=== PATIENT | female | born 1960 | race Hispanic/Latino ===

== ENCOUNTER 2022-05-04 13:09 | Emergency (ER) | payer MEDICARE ==
--- NOTE | 2022-05-04 13:34 | Event Note ---
Date: 05/04/22 EMS documentation not available at time of chart dictation Verbal report received from emergency medical services Medical screening examination note: 61-year-old female with known history of liver insufficiency, who lives at home by herself, brought to the hospital by EMS because of mechanical fall 2 days ago, landing on her knees, did not hit her head, with inability to get up. The patient is awake, breathing spontaneously, and moving 4 extremities. Apparently, neighbors, friends and/or employer stopped by for wellness check, and called 911. Obtain appropriate laboratory studies and x-ray, ideally obtain case management and physical therapy evaluation. Placed patient in room, for head to toe physical examination, detailed history and physical to be performed by oncoming provider. At the moment, patient is awake, protecting airway, hemodynamically stable, and in no significant distress
[2022-05-04 14:57] LABS: Basophils % (Auto) 0.6 % (0.0-1.8); Eosinophils % (Auto) 0.8 % (0.0-4.3); Hematocrit 39.1 % (30.3-42.9); Hemoglobin 13.4 gm/dl (10.1-14.3); Lymphocytes # (Auto) 0.3 K/mm3 (1.2-5.4); Lymphocytes % (Auto) 8.3 % (13.4-35.0); Mean Corpuscular HGB Conc 34 % (30-34); Mean Corpuscular Volume 93 fl (79-97); Monocytes # (Auto) 0.3 K/mm3 (0.0-0.8); Monocytes % (Auto) 9.1 % (0.0-7.3); Red Blood Count 4.21 M/mm3 (3.65-5.03); Red Cell Distribution Width 17.6 % (13.2-15.2)
[2022-05-04 14:59] LABS: Alanine Aminotransferase 10 units/L (7-56); Albumin 3.6 g/dL (3.9-5); Blood Urea Nitrogen 14 mg/dL (7-17); Hemolysis Index 13; Platelet Count 76 K/mm3 (140-440)
[2022-05-04 15:00] LABS: BUN/Creatinine Ratio 20
[2022-05-04 15:10] LABS: INR 1.25 (0.87-1.13)
[2022-05-04 15:11] LABS: Partial Thromboplastin Time 29.7 Sec. (24.2-36.6)
--- NOTE | 2022-05-04 17:59 | XRay Report ---
CHEST 1 VIEW 05/04/2022 4:52 PM INDICATION / CLINICAL INFORMATION: Fall. COMPARISON: None. FINDINGS: SUPPORT DEVICES: None. HEART / MEDIASTINUM: Normal. LUNGS / PLEURA: There are low lung volumes with elevation of the right hemidiaphragm. This limits kiko luation of the right lower lobe. Accounting for this, lungs are clear. No pneumothorax. ADDITIONAL FINDINGS: No significant additional findings. IMPRESSION: 1. Low lung volumes with elevation of the right hemidiaphragm. There may be chronic atelectasis of th e right lung base. Signer Name: Casper Oneal MD Signed: 05/04/2022 5:55 PM Workstation Name: [employer]
--- NOTE | 2022-05-04 18:00 | XRay Report ---
Pelvis, single frontal view HISTORY: Fall COMPARISON: None FINDINGS: Significant limited evaluation due to body habitus. 2.1 cm rounded density projects lateral to the le ft iliac bone. This is believed to be artifactual. No acute fracture or dislocation is identified. Signer Name: Gavin Mack MD Signed: 05/04/2022 5:56 PM Workstation Name: [email or web address]
--- NOTE | 2022-05-04 18:00 | XRay Report ---
BILATERAL TIBIA-FIBULA 5 VIEW(S) INDICATION / CLINICAL INFORMATION: Fall with leg pain COMPARISON: None available. FINDINGS: BONES / JOINT(S): No acute fracture or subluxation. SOFT TISSUES: No significant abnormality. ADDITIONAL FINDINGS: None. IMPRESSION: 1. No acute findings. Signer Name: Casper Oneal MD Signed: 05/04/2022 5:56 PM Workstation Name: [email or web address]
--- NOTE | 2022-05-04 18:05 | XRay Report ---
BILATERAL FEMUR 7 VIEW(S) INDICATION / CLINICAL INFORMATION: Fall with lower extremity pain COMPARISON: None available. FINDINGS: BONES / JOINT(S): No acute fracture or subluxation. Mild osteoarthrosis changes are noted at the knee s. SOFT TISSUES: No significant abnormality. ADDITIONAL FINDINGS: None. IMPRESSION: 1. Limited study due to patient body habitus and inability to position. Accounting for this, no acute findings. Signer Name: Casper Oneal MD Signed: 05/04/2022 6:00 PM Workstation Name: [email or web address]
[2022-05-04 18:43] VITALS: BP 111/67
--- NOTE | 2022-05-04 19:07 | Emergency Department Report ---
ED Fall HPI - General Chief Complaint: Fall Stated Complaint: FALL Time Seen by Provider: 05/04/22 15:36 Source: patient, EMS Mode of arrival: Stretcher - History of Present Illness Initial Comments: Patient is 61-year-old female brought in by EMS after having a fall at home. St tameras she was unable to get up for the past 2 days. Was found after neighbors called for a well check. She has history of chronic liver disease and abdominal ascites. She complains of pain in both of her knees and her left hip. - Related Data Allergies Allergy/AdvReac Type Severity Reaction Status Date / Time Penicillins AdvReac Unknown Verified 05/04/22 14:19 ED Review of Systems ROS: Stated complaint: FALL Other details as noted in HPI Constitutional: denies: chills, fever Respiratory: denies: cough, shortness of breath, wheezing Cardiovascular: denies: chest pain, palpitations Gastrointestinal: denies: abdominal pain, nausea, diarrhea Genitourinary: denies: urgency, dysuria, discharge Musculoskeletal: denies: back pain, arthralgia Skin: denies: rash, lesions Neurological: denies: headache, weakness, paresthesias Psychiatric: denies: anxiety, depression ED Past Medical Hx - Past Medical History Previous Medical History?: Yes Hx Liver Disease: Yes (CIRRHOSIS) Hx of Cancer: Yes (breast ca) - Surgical History Past Surgical History?: Yes Additional Surgical History: double mastectomy - Social History Smoking Status: Never Smoker Substance Use Type: Alcohol, Marijuana ED Physical Exam - General Limitations: No Limitations General appearance: alert, in no apparent distress - Head Head exam: Present: atraumatic, normocephalic - Respiratory Respiratory exam: Present: normal lung sounds bilaterally. Absent: respiratory distress - Cardiovascular Cardiovascular Exam: Present: regular rate, normal rhythm, normal heart sounds - GI/Abdominal GI/Abdominal exam: Present: soft, distended (Significant abdominal ascites). Absent: tenderness - Rectal Rectal exam: Present: deferred - Extremities Exam Extremities exam: Present: full ROM. Absent: tenderness, joint swelling - Neurological Exam Neurological exam: Present: alert, oriented X3, CN II-XII intact - Psychiatric Psychiatric exam: Present: normal affect, normal mood - Skin Skin exam: Present: warm, dry, intact, normal color ED Course Vital Signs 05/04/22 05/04/22 14:17 18:38 Temperature 97.7 F 98.1 F Pulse Rate 100 H 85 Respiratory 18 16 Rate Blood Pressure 106/67 111/67 [Left] O2 Sat by Pulse 98 97 Oximetry ED Medical Decision Making - Lab Data Result diagrams: 05/04/22 14:17 05/04/22 14:17 - Medical Decision Making X-ray of chest, pelvis, tib-fib unremarkable. Labs reviewed and are stable. Patient states she is currently unable to move/ambulate. Will obtain social work consult to arrange for discharge. Critical care attestation.: If time is entered above; I have spent that time in minutes in the direct care of this critically ill patient, excluding procedure time. ED Disposition Clinical Impression: Fall at home, Abdominal ascites Disposition: HOME / SELF CARE / HOMELESS Is pt being admited?: No Condition: Stable Instructions: Ascites Referrals: PRIMARY CARE, [Primary Care Provider] - 3-5 Days
--- NOTE | 2022-05-04 19:44 | Consultation ---
History of Present Illness - Reason for Consult Consult date: 05/04/22 Fall Requesting physician: ALVINA CORBIN - History of Present Illness 61 YO Female with Obesity, Cirrhosis complicated by Chronic Ascites presents ED for evaluation. Patient states that she experienced a fall while at home and was unable to lift herself up from the floor. EMS was notified and upon arrival the patient was found down and was subsequently lifted off the floor and transported to [facility] for further care and evaluation of the aforementioned symptoms. The patient was seen and evaluated emergency department. Lab and imaging studies reviewed. Patient medically optimized and is at baseline level of cognition and function. Patient does not meet admission criteria at this time. Patient has chronic large volume ascites without respiratory symptoms and therapeutic paracentesis is not warranted at this time due to lack of respiratory symptoms. Case management consulted for assistance with arrangement of outpatient supplies and equipment. Past History Past Medical History: other (See HPI) Past Surgical History: mastectomy Social history: single. denies: smoking, alcohol abuse, prescription drug abuse Family history: hypertension Medications and Allergies Allergies Allergy/AdvReac Type Severity Reaction Status Date / Time Penicillins AdvReac Unknown Verified 05/04/22 14:19 Review of Systems Constitutional: no weight loss, no weight gain, no fever, no chills Ears, nose, mouth and throat: no ear pain, no ear discharge, no tinnitis, no dec reased hearing, no nose pain, no nasal congestion, no nasal discharge, no sinus pressure Breasts: no change in shape, no swelling, no mass Cardiovascular: no chest pain, no orthopnea, no palpitations, no syncope Respiratory: no cough, no excessive sputum, no hemoptysis, no dyspnea on exertion Gastrointestinal: no abdominal pain, no nausea, no vomiting, no constipation Genitourinary Female: no pelvic pain, no flank pain, no dysuria, no urinary frequency, no urgency Rectal: no pain, no incontinence, no bleeding Musculoskeletal: no neck stiffness, no neck pain, no arm numbness/tingling, no shooting leg pain, no leg numbness/tingling Integumentary: no rash, no pruritis, no redness, no sores, no wounds, no jaundice Neurological: no head injury, no paralysis, no weakness, no parathesias, no numbness, no tingling, no seizures Psychiatric: no anxiety, no memory loss, no sleep disturbances, no hypersomnia, no change in appetite, no suicidal ideation Endocrine: no cold intolerance, no heat intolerance, no excessive thirst, no polydipsia, no polyuria Hematologic/Lymphatic: no easy bruising Allergic/Immunologic: no urticaria, no wheezing Exam - Constitutional Vitals: Temp Pulse Resp BP Pulse Ox 98.1 F 85 16 111/67 97 05/04/22 18:38 05/04/22 18:38 05/04/22 18:38 05/04/22 18:38 05/04/22 18:38 General appearance: Present: no acute distress, obese - EENT Eyes: Present: PERRL ENT: hearing intact, clear oral mucosa - Neck Neck: Present: supple, normal ROM - Respiratory Respiratory effort: normal Respiratory: bilateral: CTA - Cardiovascular Heart Sounds: Present: S1 & S2. Absent: rub, click - Extremities Extremities: pulses symmetrical, No edema Peripheral Pulses: within normal limits - Abdominal General gastrointestinal: Present: soft, non-tender, non-distended, normal bowel sounds, other (Protuberant, positive fluid wave) Female genitourinary: Present: normal - Integumentary Integumentary: Present: clear, warm, dry - Musculoskeletal Musculoskeletal: gait normal, strength equal bilaterally - Psychiatric Psychiatric: appropriate mood/affect, intact judgment & insight - Neurologic Neurologic: CNII-XII intact, moves all extremities Results - Labs CBC & Chem 7: 05/04/22 14:17 05/04/22 14:17 Labs: Abnormal lab results 05/04/22 05/04/22 05/04/22 Range/Units 14:17 14:17 14:17 WBC 3.4 L (4.5-11.0) K/mm3 RDW 17.6 H (13.2-15.2) % Plt Count 76 L (140-440) K/mm3 Lymph % (Auto) 8.3 L (13.4-35.0) % [place] % (Auto) 9.1 H (0.0-7.3) % Lymph # (Auto) 0.3 L (1.2-5.4) K/mm3 Seg Neutrophils % 81.2 H (40.0-70.0) % PT 17.2 H (12.2-14.9) Sec. INR 1.25 H (0.87-1.13) Total Bilirubin 3.40 H (0.1-1.2) mg/dL Total Protein 6.2 L (6.3-8.2) g/dL Albumin 3.6 L (3.9-5) g/dL Assessment and Plan - Patient Problems (1) Debility Current Visit: Yes Status: Acute Plan to address problem: Patient does not meet admission criteria at this time. No soft tissue or bony injury. Patient medically optimized and is at baseline level of both cognition and function. Discharge home with home health, rolling walker, bedside commode, shower chair. Patient may also benefit from the purchase of a motorized scooter for ambulation.
== END 2022-05-04 21:59 | disposition home or self-care (01) ==
LOC: ED 13:09
DX: R18.8 Other ascites (principal); W19.XXXA Unspecified fall, initial encounter; Y93.89 Activity, other specified; Y92.89 Other specified places as the place of occurrence of the external cause; Y99.8 Other external cause status; F12.90 Cannabis use, unspecified, uncomplicated; Z88.0 Allergy status to penicillin
CPT/HCPCS: 36415; 71045; 72170; 80053; 82550; 83735; 85025; 85610; 85730; 99283; 99284

== ENCOUNTER 2022-05-04 22:57 | Inpatient (IN) | payer MEDICARE ==
--- NOTE | 2022-05-04 23:27 | Emergency Department Report ---
HPI - HPI HPI: Room 7 The patient is a 61-year-old female brought back to the ED by EMS secondary to poor home living conditions and patient's inability to walk. The patient was seen here earlier today after previous fall. Patient states 2 days ago she fell and was unable to get up. Patient was found when others called for a well check visit. Patient was evaluated in the ED with x-rays. Hospital medicine was consulted and stated patient did not meet criteria for admission. The patient was discharged home however when EMS arrived to the patient's only saw the patient's poor living conditions and that she was living alone and she was unable to ambulate stated it was an unsafe discharge. Patient was brought back to the ED for further management <NIKIA HARRINGTON - Last Filed: 05/04/22 23:23> - General PUI?: No <BILLY BENITEZ - Last Filed: 05/07/22 19:43> - General Time Seen by Provider: 05/04/22 23:09 ED Past Medical Hx - Past Medical History Hx Liver Disease: Yes (CIRRHOSIS) - Surgical History Additional Surgical History: double mastectomy - Family History Family history: no significant - Social History Smoking Status: Never Smoker Substance Use Type: Alcohol, Marijuana <NIKIA HARRINGTON - Last Filed: 05/04/22 23:23> <BILLY BENITEZ - Last Filed: 05/07/22 19:43> - Medications Home Medications: Home Medications Medication Instructions Recorded Confirmed Last Taken Type Furosemide [Lasix TAB] 40 mg PO QDAY 30 Days #30 tablet 05/07/22 Unknown Rx Spironolactone [Aldactone] 100 mg PO QDAY 30 Days #60 tablet 05/07/22 Unknown Rx ED Review of Systems ROS: Stated complaint: LIVING IN UNSAFE CONDITION Other details as noted in HPI Constitutional: malaise (Unable to walk) Eyes: denies: eye pain Respiratory: no symptoms reported Cardiovascular: denies: chest pain Endocrine: no symptoms reported Gastrointestinal: denies: abdominal pain Musculoskeletal: as per HPI Neurological: denies: headache <NIKIA HARRINGTON - Last Filed: 05/04/22 23:23> ROS: Stated complaint: LIVING IN UNSAFE CONDITION Other details as noted in HPI <BILLY BENITEZ - Last Filed: 05/07/22 19:43> Physical Exam - Physical Exam Physical Exam: GENERAL: The patient is well-developed well-nourished female lying on stretcher not appearing to be in acute distress talking on mobile phone. [] HEENT: Normocephalic. Atraumatic. Extraocular motions are intact. Patient has moist mucous membranes. NECK: Supple. Trachea midline CHEST/LUNGS: Clear to auscultation. There is no respiratory distress noted. HEART/CARDIOVASCULAR: Regular. There is no tachycardia. There is no gallop rub or murmur. ABDOMEN: Abdomen is soft, nontender. Patient has normal bowel sounds. Obese. There is no tense ascites present SKIN: There is no rash. There is no edema. There is no diaphoresis. NEURO: The patient is awake, alert, and oriented. The patient is cooperative. The patient has no focal neurologic deficits. The patient has normal speech. GCS 15 MUSCULOSKELETAL: There is no evidence of acute injury. <NIKIA HARRINGTON - Last Filed: 05/04/22 23:23> - Physical Exam Vital Signs: Vital Signs 05/05/22 05/05/22 00:22 06:34 Temperature 98.0 F 98.3 F Pulse Rate 79 79 Respiratory 20 19 Rate Blood Pressure 139/71 133/77 [Left] O2 Sat by Pulse 100 99 Oximetry <BILLY BENITEZ - Last Filed: 05/07/22 19:43> ED Course Vital Signs 05/05/22 05/05/22 00:22 06:34 Temperature 98.0 F 98.3 F Pulse Rate 79 79 Respiratory 20 19 Rate Blood Pressure 139/71 133/77 [Left] O2 Sat by Pulse 100 99 Oximetry <BILLY BENITEZ - Last Filed: 05/07/22 19:43> ED Medical Decision Making - Differential Diagnosis Needs home health <NIKIA HARRINGTON - Last Filed: 05/04/22 23:23> - Lab Data Result diagrams: 05/06/22 03:51 05/06/22 03:51 <BILLY BENITEZ - Last Filed: 05/07/22 19:43> Critical care attestation.: If time is entered above; I have spent that time in minutes in the direct care of this critically ill patient, excluding procedure time. <NIKIA HARRINGTON - Last Filed: 05/04/22 23:23> Critical care attestation.: If time is entered above; I have spent that time in minutes in the direct care of this critically ill patient, excluding procedure time. <BILLY BENITEZ - Last Filed: 05/07/22 19:43> ED Disposition Time of Disposition: 23:27 (Awaiting case management) <NIKIA HARRINGTON - Last Filed: 05/04/22 23:23> Is pt being admited?: Yes Does the pt Need Aspirin: No <BILLY BENITEZ - Last Filed: 05/07/22 19:43> Clinical Impression: Debility Disposition: ADMITTED INPATIENT Condition: Stable
[2022-05-05] MEDS ORDERED: ONDANSETRON 4 MG/2 ML INJ IV PRN ×2 (09:58→11:00)
[2022-05-05] MEDS ORDERED: ACETAMINOPHEN 325 MG TAB PO PRN ×2 (09:58→11:00)
[2022-05-05] MEDS ORDERED: MORPHINE 2 MG/1 ML INJ IV PRN (09:58)
--- NOTE | 2022-05-05 09:58 | Event Note ---
Date: 05/05/22 This patient signed out to me as a case management patient as she was not safe to be discharged home. Pt was brought back by the EMS yesterday after she was discharged home. I was asked to reassess this patient with sob and needing 6 L O2 supplement with abdominal distension. Pt has history of chronic ascites with cirrhosis and have had large paracentesis in the past. With this patient been hypoxic at this time will consider admission. Dr Guillermo consulted who accept patient for further evaluation and treatment.
[2022-05-05] MEDS ORDERED: MORPHINE 4 MG/1 ML INJ IV PRN (11:00)
[2022-05-05 11:09] LABS: Hemoglobin 12.9 gm/dl (10.1-14.3); Mean Corpuscular HGB Conc 33 % (30-34); Mean Corpuscular Volume 94 fl (79-97); Red Blood Count 4.13 M/mm3 (3.65-5.03); Red Cell Distribution Width 17.9 % (13.2-15.2)
[2022-05-05 11:11] LABS: Platelet Count 79 K/mm3 (140-440)
[2022-05-05 11:18] LABS: Alanine Aminotransferase 10 units/L (7-56); Albumin 3.4 g/dL (3.9-5); BUN/Creatinine Ratio 18; Blood Urea Nitrogen 14 mg/dL (7-17); Calcium 9.2 mg/dL (8.4-10.2); Hemolysis Index 20
[2022-05-05 11:35] LABS: INR 1.36 (0.87-1.13)
[2022-05-05] MEDS ORDERED: ALBUMIN HUMAN 25% (25 GM/100 ML) INJ IV PRN (11:40)
--- NOTE | 2022-05-05 11:58 | History and Physical Report ---
History of Present Illness Date of examination: 05/05/22 Date of admission: 05/05/22 09:58 History of present illness: Patient is a 61-year-old female with past medical history significant for cirrhosis who presented to the emergency department after a same level fall. The patient felt Monday night and was unable to get up. She was found around monday after a welfare check. She denies lightheadedness, dizziness, syncope or loss of consciousness. Patient was initially seen in the ED and discharged home but was brought back by EMS due to inability to walk back into her home. She was found to be hypoxic and placed on supplemental oxygen. She reports following with Dr. Jasiel Sinha with [facility] for cirrhosis. She had 20 L of fluid removed last month and takes Lasix and spironolactone. She is admitted for management of acute hypoxic respiratory failure and therapeutic paracentesis. PT was consulted to assess her ability to ambulate. Past History Past Medical History: cancer, liver disease Social history: Lives alone. denies: smoking, alcohol abuse, IV drug use Family history: no significant family history Medications and Allergies Allergies Allergy/AdvReac Type Severity Reaction Status Date / Time Penicillins Allergy Severe Unknown Verified 05/05/22 10:06 Active Meds: Active Medications Acetaminophen (Acetaminophen 325 Mg Tab) 650 mg PO Q4H PRN PRN Reason: Pain MILD(1-3)/Fever >100.5/[place] Albumin Human (Albumin Human 25% (25 Gm/100 Ml) Inj) 25 gm IV Q8HR PRN PRN Reason: Hypotension Furosemide (Furosemide 40 Mg Tab) 40 mg PO QDAY LALO Morphine Sulfate (Morphine 2 Mg/1 Ml Inj) 2 mg IV Q4H PRN PRN Reason: Pain, Moderate (4-6) Morphine Sulfate (Morphine 4 Mg/1 Ml Inj) 4 mg IV Q4H PRN PRN Reason: Pain , Severe (7-10) Ondansetron HCl (Ondansetron 4 Mg/2 Ml Inj) 4 mg IV Q8H PRN PRN Reason: Nausea And Vomiting Oxycodone/Acetaminophen (Oxycodone /Acetaminophen 5-325mg Tab) 1 tab PO Q6H PRN PRN Reason: Pain, Moderate (4-6) Sodium Chloride (Sodium Chloride 0.9% 10 Ml Flush Syringe) 10 ml IV BID LALO Sodium Chloride (Sodium Chloride 0.9% 10 Ml Flush Syringe) 10 ml IV PRN NR Stop: 05/10/22 10:59 Spironolactone (Spironolactone 50 Mg Tab) 100 mg PO QDAY [facility] Review of Systems Constitutional: weight gain, no fever, no chills, no sweats, no anorexia, no fatigue, no poor appetite, no chronic pain Ears, nose, mouth and throat: no tinnitis, no dysphagia, no sore throat, no headache, no vertigo Breasts: deferred Cardiovascular: edema, shortness of breath, no chest pain, no palpitations, no rapid/irregular heart beat, no syncope, no lightheadedness, no dyspnea on exertion, no high blood pressure, no leg edema Respiratory: no cough, no hemoptysis, no congestion, no wheezing, no pain on inspiration, no home oxygen Gastrointestinal: early satiety, no abdominal pain, no nausea, no vomiting, no diarrhea, no constipation, no hematemesis, no coffee ground emesis, no heartburn Menstruation: postmenopausal Musculoskeletal: no low back pain, no leg numbness/tingling, no muscle weakness, no gait dysfunction, no frequent falls, no fractures Integumentary: no rash, no sores, no jaundice, no dryness Neurological: no head injury, no weakness, no parathesias, no syncope, no tremors, no lack of coordination, no change in mentation, no confusion, no double vision, no loss of vision Psychiatric: change in sleep habits, no anxiety, no memory loss, no suicidal ideation, no hopelessness Endocrine: no polydipsia, no polyuria, no fatigue Exam - Physical Exam Narrative exam: GENERAL: Well-developed well-nourished. In no acute distress. HEENT: NC in place at 5LPM. No scleral icterus noted. Edentulous. NECK: Supple. CHEST/LUNGS: CTAB on supplemental O2 HEART/CARDIOVASCULAR: RRR. No murmur, rubs or gallops appreciated. ABDOMEN: +BS. Distended due to ascites. NT to palpation. SKIN: No rashes noted. NEURO: No focal motor deficit. Follows all commands. MUSCULOSKELETAL: No joint effusion EXTREMITIES: No cyanosis, clubbing or periperal edema. PSYCH: Cooperative. - Constitutional Vitals: Temp Pulse Resp BP Pulse Ox 98.3 F 107 H 12 116/68 99 05/05/22 06:34 05/05/22 07:49 05/05/22 09:00 05/05/22 09:46 05/05/22 09:46 Results - Labs CBC & Chem 7: 05/05/22 10:23 05/05/22 10:23 Labs: Laboratory Last Values WBC 4.0 K/mm3 (4.5-11.0) L 05/05/22 10:23 RBC 4.13 M/mm3 (3.65-5.03) 05/05/22 10:23 Hgb 12.9 gm/dl (10.1-14.3) 05/05/22 10:23 Hct 39.0 % (30.3-42.9) 05/05/22 10:23 MCV 94 fl (79-97) 05/05/22 10:23 MCH 31 pg (28-32) 05/05/22 10:23 MCHC 33 % (30-34) 05/05/22 10:23 RDW 17.9 % (13.2-15.2) H 05/05/22 10:23 Plt Count 79 K/mm3 (140-440) L 05/05/22 10:23 PT 18.4 Sec. (12.2-14.9) H 05/05/22 10:23 INR 1.36 (0.87-1.13) H 05/05/22 10:23 Sodium 141 mmol/L (137-145) 05/05/22 10:23 Potassium 4.1 mmol/L (3.6-5.0) 05/05/22 10:23 Chloride 102.6 mmol/L (98-107) 05/05/22 10:23 Carbon Dioxide 25 mmol/L (22-30) 05/05/22 10:23 Anion Gap 18 mmol/L 05/05/22 10:23 BUN 14 mg/dL (7-17) 05/05/22 10:23 Creatinine 0.8 mg/dL (0.6-1.2) 05/05/22 10:23 Estimated GFR > 60 ml/min 05/05/22 10:23 BUN/Creatinine Ratio 18 % 05/05/22 10:23 Glucose 95 mg/dL (65-100) 05/05/22 10:23 Calcium 9.2 mg/dL (8.4-10.2) 05/05/22 10:23 Total Bilirubin 3.20 mg/dL (0.1-1.2) H 05/05/22 10:23 AST 23 units/L (5-40) 05/05/22 10:23 ALT 10 units/L (7-56) 05/05/22 10:23 Alkaline Phosphatase 62 units/L (35-129) 05/05/22 10:23 Total Protein 5.7 g/dL (6.3-8.2) L 05/05/22 10:23 Albumin 3.4 g/dL (3.9-5) L 05/05/22 10:23 Albumin/Globulin Ratio 1.5 % 05/05/22 10:23 - Imaging and Cardiology Chest x-ray: report reviewed, image reviewed Assessment and Plan Assessment and plan: #Acute hypoxic respiratory failure -Baseline oxygen requirement: None -Oxygen requirement: Currently on 5 L nasal cannula, will wean as tolerated -Likely secondary to ascites -Continuous pulse ox -Chest x-ray shows low lung volumes with elevated right hemidiaphragm #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 #Ascites -theraputic paracentesis ordered -continue lasix and furosemide #Same level fall -Skeletal survey was negative for acute fractures/dislocations -PT consultation ordered to evaluate gait #History of breast cancer -Status postchemotherapy #Morbid obesity #Weight loss counseling #Exercise counseling - Counseled patient on the importance of weight loss, incorporating exercise, and dietary changes (lean meats, fresh fruits and vegetables, and water intake). Patient expresses understanding. - Time: +15 min #Advanced care planning -Disease education conducted, care plan discussed, diagnoses discussed, prognosis discussed, and patient acknowledges understanding with care plan -Time: +30 min #Debility -PT evaluation for safe discharge -Patient lives alone Advance Directives: No VTE prophylaxis?: Chemical Plan of care discussed with patient/family: Yes
[2022-05-05] MEDS: FUROSEMIDE 40 MG TAB PO SCH (12:51)
[2022-05-05] MEDS: SPIRONOLACTONE 50 MG TAB PO SCH (12:51)
[2022-05-05] MEDS ORDERED: LIDOCAINE (1%) 10 MG/1 ML VIAL 20 ML MDV ONE (13:55)
--- NOTE | 2022-05-05 14:20 | Procedure Note ---
Date of procedure: 05/05/22 Pre-op diagnosis: ascites Post-op diagnosis: same Procedure: US paracentesis Findings: large ascites Anesthesia: local Surgeon: DELL ALMAZAN Estimated blood loss: none Pathology: none Specimen disposition: discarded Condition: stable Disposition: other (back to ER)
[2022-05-06] MEDS: HEPARIN 5,000 UNIT/1 ML VIAL SUB-Q SCH ×4 (00:16→21:29)
[2022-05-06 04:43] LABS: Basophils % (Auto) 0.8 % (0.0-1.8); Eosinophils # (Auto) 0.1 K/mm3 (0.0-0.4); Eosinophils % (Auto) 1.9 % (0.0-4.3); Hematocrit 38.1 % (30.3-42.9); Hemoglobin 13.1 gm/dl (10.1-14.3); Lymphocytes # (Auto) 0.4 K/mm3 (1.2-5.4); Mean Corpuscular HGB Conc 34 % (30-34); Mean Corpuscular Volume 92 fl (79-97); Monocytes # (Auto) 0.4 K/mm3 (0.0-0.8); Red Blood Count 4.13 M/mm3 (3.65-5.03); Red Cell Distribution Width 17.2 % (13.2-15.2)
[2022-05-06 04:44] LABS: Platelet Count 70 K/mm3 (140-440)
[2022-05-06 04:50] LABS: INR 1.44 (0.87-1.13)
[2022-05-06 05:03] LABS: Alanine Aminotransferase 8 units/L (7-56); Albumin 2.7 g/dL (3.9-5); BUN/Creatinine Ratio 16; Blood Urea Nitrogen 13 mg/dL (7-17); Calcium 8.4 mg/dL (8.4-10.2); Hemolysis Index 9
[2022-05-06] MEDS: oxyCODONE /ACETAMINOPHEN 5-325MG TAB PO PRN ×2 (08:49→14:34)
[2022-05-06] MEDS: FUROSEMIDE 40 MG TAB PO SCH (14:17)
[2022-05-06] MEDS: SPIRONOLACTONE 50 MG TAB PO SCH (14:17)
[2022-05-06] MEDS ORDERED: POTASSIUM CHLORIDE ER 20 MEQ TAB PO SCH (14:30)
--- NOTE | 2022-05-06 15:05 | Progress Note ---
Assessment and Plan Assessment and plan: #Acute hypoxic respiratory failure-resolved -Baseline oxygen requirement: None -Oxygen requirement: None -Likely secondary to ascites causing low lung volumes -Chest x-ray shows low lung volumes with elevated right hemidiaphragm #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 #Ascites #thrombocytopenia -theraputic paracentesis completed yesterday -continue lasix and furosemide -thrombocytopenia due to liver disease, will continue to monitor #Same level fall -Skeletal survey was negative for acute fractures/dislocations -PT consultation ordered to evaluate gait #History of breast cancer -Status postchemotherapy #Morbid obesity #Weight loss counseling #Exercise counseling - Counseled patient on the importance of weight loss, incorporating exercise, and dietary changes (lean meats, fresh fruits and vegetables, and water intake). Patient expresses understanding. - Time: +15 min #moderate protein calorie malnutrition -albumin 2.9 -secondary to cirrhosis #Advanced care planning -Disease education conducted, care plan discussed, diagnoses discussed, prognosis discussed, and patient acknowledges understanding with care plan -Time: +30 min #Debility -PT evaluation for safe discharge -Patient lives alone History Interval history: No acute events overnight. Patient has no complaints at this time. She is currently waiting for PT evaluation to determine dispo. Hospitalist Physical - Physical exam Narrative exam: GENERAL: Well-developed well-nourished. In no acute distress. HEENT: Normocephalic, atraumatic. No scleral icterus noted. Edentulous. NECK: Supple. CHEST/LUNGS: CTAB on RA. HEART/CARDIOVASCULAR: RRR. No murmur, rubs or gallops appreciated. ABDOMEN: +BS. Distended. NT to palpation. SKIN: BUE ecchymoses NEURO: No focal motor deficit. Follows all commands. MUSCULOSKELETAL: No joint effusion EXTREMITIES: No cyanosis, clubbing or peripheral edema. PSYCH: Cooperative. - Constitutional Vitals: Temp Pulse Resp BP Pulse Ox 97.9 F 84 18 86/49 98 05/06/22 11:38 05/06/22 11:38 05/06/22 11:38 05/06/22 11:38 05/06/22 11:38 Results - Labs CBC & Chem 7: 05/06/22 03:51 05/06/22 03:51 Labs: Laboratory Last Values WBC 3.2 K/mm3 (4.5-11.0) L 09/02/22 03:51 RBC 4.13 M/mm3 (3.65-5.03) 05/06/22 03:51 Hgb 13.1 gm/dl (10.1-14.3) 05/06/22 03:51 Hct 38.1 % (30.3-42.9) 05/06/22 03:51 MCV 92 fl (79-97) 05/06/22 03:51 MCH 32 pg (28-32) 05/06/22 03:51 MCHC 34 % (30-34) 05/06/22 03:51 RDW 17.2 % (13.2-15.2) H 05/06/22 03:51 Plt Count 70 K/mm3 (140-440) L 05/06/22 03:51 Lymph % (Auto) 13.0 % (13.4-35.0) L 05/06/22 03:51 [place] % (Auto) 14.0 % (0.0-7.3) H 05/06/22 03:51 Eos % (Auto) 1.9 % (0.0-4.3) 05/06/22 03:51 Baso % (Auto) 0.8 % (0.0-1.8) 05/06/22 03:51 Lymph # (Auto) 0.4 K/mm3 (1.2-5.4) L 05/06/22 03:51 [place] # (Auto) 0.4 K/mm3 (0.0-0.8) 05/06/22 03:51 Eos # (Auto) 0.1 K/mm3 (0.0-0.4) 05/06/22 03:51 Baso # (Auto) 0.0 K/mm3 (0.0-0.1) 05/06/22 03:51 Seg Neutrophils % 70.3 % (40.0-70.0) H 05/06/22 03:51 Seg Neutrophils # 2.2 K/mm3 (1.8-7.7) 05/06/22 03:51 PT 19.3 Sec. (12.2-14.9) H 05/06/22 03:51 INR 1.44 (0.87-1.13) H 05/06/22 03:51 Sodium 144 mmol/L (137-145) 05/06/22 03:51 Potassium 3.4 mmol/L (3.6-5.0) L 05/06/22 03:51 Chloride 104.6 mmol/L (98-107) 05/06/22 03:51 Carbon Dioxide 29 mmol/L (22-30) 05/06/22 03:51 Anion Gap 14 mmol/L 05/06/22 03:51 BUN 13 mg/dL (7-17) 05/06/22 03:51 Creatinine 0.8 mg/dL (0.6-1.2) 05/06/22 03:51 Estimated GFR > 60 ml/min 05/06/22 03:51 BUN/Creatinine Ratio 16 % 05/06/22 03:51 Glucose 91 mg/dL (65-100) 05/06/22 03:51 Calcium 8.4 mg/dL (8.4-10.2) 05/06/22 03:51 Total Bilirubin 1.90 mg/dL (0.1-1.2) H 05/06/22 03:51 AST 18 units/L (5-40) 05/06/22 03:51 ALT 8 units/L (7-56) 05/06/22 03:51 Alkaline Phosphatase 55 units/L (35-129) 05/06/22 03:51 Total Protein 5.0 g/dL (6.3-8.2) L 05/06/22 03:51 Albumin 2.7 g/dL (3.9-5) L 05/06/22 03:51 Albumin/Globulin Ratio 1.2 % 05/06/22 03:51 [place]/IV: Voiding Method Indwelling Catheter Active Medications - Current Medications Current Medications: Generic Name Dose Route Start Last Admin Trade Name Freq PRN Reason Stop Dose Admin Acetaminophen 650 mg 05/05/22 11:00 Acetaminophen 325 Mg Tab PO Q4H PRN Pain MILD(1-3)/Fever >100.5/[place] Albumin Human 25 gm 05/05/22 11:40 05/06/22 14:16 Albumin Human 25% (25 Gm/100 Ml) Inj IV 25 gm Q8HR PRN Administration Hypotension Furosemide 40 mg 05/05/22 12:00 05/06/22 14:17 Furosemide 40 Mg Tab PO Not Given QDAY LALO Heparin Sodium (Porcine) 5,000 unit 05/05/22 22:00 05/06/22 14:33 Heparin 5,000 Unit/1 Ml Vial SUB-Q 5,000 unit Q8HR LALO Administration Morphine Sulfate 2 mg 05/05/22 09:58 Morphine 2 Mg/1 Ml Inj IV Q4H PRN Pain, Moderate (4-6) Morphine Sulfate 4 mg 05/05/22 11:00 Morphine 4 Mg/1 Ml Inj IV Q4H PRN Pain , Severe (7-10) Ondansetron HCl 4 mg 05/05/22 11:00 Ondansetron 4 Mg/2 Ml Inj IV Q8H PRN Nausea And Vomiting Oxycodone/Acetaminophen 1 tab 05/05/22 11:00 05/06/22 14:34 Oxycodone /Acetaminophen 5-325mg Tab PO 1 tab Q6H PRN Administration Pain, Moderate (4-6) Potassium Chloride 40 meq 05/06/22 14:30 05/06/22 14:32 Potassium Chloride Er 20 Meq Tab PO 05/06/22 18:30 40 meq ONCE@1430 LALO Administration Sodium Chloride 10 ml 05/05/22 22:00 05/06/22 09:51 Sodium Chloride 0.9% 10 Ml Flush Syringe IV 10 ml BID LALO Administration Sodium Chloride 10 ml 05/05/22 11:00 Sodium Chloride 0.9% 10 Ml Flush Syringe IV 05/10/22 10:59 PRN NR Spironolactone 100 mg 05/05/22 12:00 05/06/22 14:17 Spironolactone 50 Mg Tab PO Not Given QDAY LALO
[2022-05-07] MEDS: HEPARIN 5,000 UNIT/1 ML VIAL SUB-Q SCH ×3 (05:41→21:06)
--- NOTE | 2022-05-07 07:28 | Discharge Summary ---
Providers - Providers Date of Admission: 05/05/22 09:58 Attending physician: AYO MAXWELL MD 05/04/22 23:21 Consult to Case Management [CONS] Urgent Services Needed at Discharge: [facility] Notified:: n Additional Physician Instructions: Patient lives at home alone and unable to ambulate. EMS states the patient lives in poor conditions and was not safe to leave further alone so they brought her back to the ED. Needs safe discharge 05/05/22 10:16 Physical Therapy Evaluation and Treat [CONS] Routine Comment: Reason For Exam: GAIT EVALUATION 05/06/22 16:18 Consult to Case Management [CONS] Routine Services Needed at Discharge: Home Health Services Physical Therapy Primary care physician: [facility] Hospitalization Condition: Stable Exam - Constitutional Vitals: Temp Pulse Resp BP Pulse Ox 97.2 F L 85 18 90/52 94 05/07/22 04:42 05/07/22 04:42 05/07/22 04:42 05/07/22 04:42 05/07/22 04:42 Plan Care Plan Goals: Please follow-up with your primary care provider and [facility]. Please restart the lasix and spironolactone as you were prescribed. We have ordered home health with physical therapy visits for you as recommended by physical therapy. Follow up with: PRIMARY CAREMD [Primary Care Provider] - 3-5 Days Prescriptions: Spironolactone [Aldactone] 100 mg PO QDAY 30 Days #60 tablet Furosemide [Lasix TAB] 40 mg PO QDAY 30 Days #30 tablet
[2022-05-07] MEDS: FUROSEMIDE 40 MG TAB PO SCH (09:41)
[2022-05-07] MEDS: SPIRONOLACTONE 50 MG TAB PO SCH (09:41)
[2022-05-08] MEDS: HEPARIN 5,000 UNIT/1 ML VIAL SUB-Q SCH ×3 (06:55→22:22)
[2022-05-08] MEDS: FUROSEMIDE 40 MG TAB PO SCH (10:21)
[2022-05-08] MEDS: SPIRONOLACTONE 50 MG TAB PO SCH (10:21)
--- NOTE | 2022-05-08 13:07 | Progress Note ---
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 Patient expresses understanding. - Time: +15 min #moderate protein calorie malnutrition -albumin 2.9 -secondary to cirrhosis #Advanced care planning -Disease education conducted, care plan discussed, diagnoses discussed, prognosis discussed, and patient acknowledges understanding with care plan -Time: +30 min #Debility -PT evaluation for safe discharge -Patient lives alone History Interval history: No acute events overnight. Patient has no complaints at this time. She's awaiting DME for discharge. Hospitalist Physical - Physical exam Narrative exam: GENERAL: Well-developed well-nourished. In no acute distress. HEENT: Normocephalic, atraumatic. No scleral icterus noted. Edentulous. NECK: Supple. CHEST/LUNGS: CTAB on RA. HEART/CARDIOVASCULAR: RRR. No murmur, rubs or gallops appreciated. ABDOMEN: +BS. Distended. NT to palpation. SKIN: BUE ecchymoses NEURO: No focal motor deficit. Follows all commands. MUSCULOSKELETAL: No joint effusion EXTREMITIES: No cyanosis, clubbing or peripheral edema. PSYCH: Cooperative. - Constitutional Vitals: Temp Pulse Resp BP Pulse Ox 98.3 F 83 19 100/51 96 05/08/22 08:13 05/08/22 08:13 05/08/22 08:13 05/08/22 08:13 05/08/22 08:13 Results - Labs CBC & Chem 7: 05/06/22 03:51 05/06/22 03:51 Labs: Laboratory Last Values WBC 3.2 K/mm3 (4.5-11.0) L 05/06/22 03:51 RBC 4.13 M/mm3 (3.65-5.03) 05/06/22 03:51 Hgb 13.1 gm/dl (10.1-14.3) 05/06/22 03:51 Hct 38.1 % (30.3-42.9) 05/06/22 03:51 MCV 92 fl (79-97) 05/06/22 03:51 MCH 32 pg (28-32) 05/06/22 03:51 MCHC 34 % (30-34) 05/06/22 03:51 RDW 17.2 % (13.2-15.2) H 05/06/22 03:51 Plt Count 70 K/mm3 (140-440) L 05/06/22 03:51 Lymph % (Auto) 13.0 % (13.4-35.0) L 05/06/22 03:51 [place] % (Auto) 14.0 % (0.0-7.3) H 05/06/22 03:51 Eos % (Auto) 1.9 % (0.0-4.3) 05/06/22 03:51 Baso % (Auto) 0.8 % (0.0-1.8) 05/06/22 03:51 Lymph # (Auto) 0.4 K/mm3 (1.2-5.4) L 05/06/22 03:51 [place] # (Auto) 0.4 K/mm3 (0.0-0.8) 05/06/22 03:51 Eos # (Auto) 0.1 K/mm3 (0.0-0.4) 05/06/22 03:51 Baso # (Auto) 0.0 K/mm3 (0.0-0.1) 05/06/22 03:51 Seg Neutrophils % 70.3 % (40.0-70.0) H 05/06/22 03:51 Seg Neutrophils # 2.2 K/mm3 (1.8-7.7) 05/06/22 03:51 PT 19.3 Sec. (12.2-14.9) H 05/06/22 03:51 INR 1.44 (0.87-1.13) H 05/06/22 03:51 Sodium 144 mmol/L (137-145) 05/06/22 03:51 Potassium 3.4 mmol/L (3.6-5.0) L 05/06/22 03:51 Chloride 104.6 mmol/L (98-107) 05/06/22 03:51 Carbon Dioxide 29 mmol/L (22-30) 05/06/22 03:51 Anion Gap 14 mmol/L 05/06/22 03:51 BUN 13 mg/dL (7-17) 05/06/22 03:51 Creatinine 0.8 mg/dL (0.6-1.2) 05/06/22 03:51 Estimated GFR > 60 ml/min 05/06/22 03:51 BUN/Creatinine Ratio 16 % 05/06/22 03:51 Glucose 91 mg/dL (65-100) 05/06/22 03:51 Calcium 8.4 mg/dL (8.4-10.2) 05/06/22 03:51 Total Bilirubin 1.90 mg/dL (0.1-1.2) H 05/06/22 03:51 AST 18 units/L (5-40) 05/06/22 03:51 ALT 8 units/L (7-56) 05/06/22 03:51 Alkaline Phosphatase 55 units/L (35-129) 05/06/22 03:51 Total Protein 5.0 g/dL (6.3-8.2) L 05/06/22 03:51 Albumin 2.7 g/dL (3.9-5) L 05/06/22 03:51 Albumin/Globulin Ratio 1.2 % 05/06/22 03:51 [place]/IV: Voiding Method External Female Catheter Active Medications - Current Medications Current Medications: Generic Name Dose Route Start Last Admin Trade Name Freq PRN Reason Stop Dose Admin Acetaminophen 650 mg 05/05/22 11:00 Acetaminophen 325 Mg Tab PO Q4H PRN Pain MILD(1-3)/Fever >100.5/[place] Albumin Human 25 gm 05/05/22 11:40 05/06/22 14:16 Albumin Human 25% (25 Gm/100 Ml) Inj IV 25 gm Q8HR PRN Administration Hypotension Furosemide 40 mg 05/05/22 12:00 05/07/22 09:41 Furosemide 40 Mg Tab PO 40 mg QDAY LALO Administration Heparin Sodium (Porcine) 5,000 unit 05/05/22 22:00 05/08/22 06:55 Heparin 5,000 Unit/1 Ml Vial SUB-Q 5,000 unit Q8HR LALO Administration Morphine Sulfate 2 mg 05/05/22 09:58 Morphine 2 Mg/1 Ml Inj IV Q4H PRN Pain, Moderate (4-6) Morphine Sulfate 4 mg 05/05/22 11:00 Morphine 4 Mg/1 Ml Inj IV Q4H PRN Pain , Severe (7-10) Ondansetron HCl 4 mg 05/05/22 11:00 Ondansetron 4 Mg/2 Ml Inj IV Q8H PRN Nausea And Vomiting Oxycodone/Acetaminophen 1 tab 05/05/22 11:00 05/06/22 14:34 Oxycodone /Acetaminophen 5-325mg Tab PO 1 tab Q6H PRN Administration Pain, Moderate (4-6) Sodium Chloride 10 ml 05/05/22 22:00 05/07/22 21:06 Sodium Chloride 0.9% 10 Ml Flush Syringe IV 10 ml BID LALO Administration Sodium Chloride 10 ml 05/05/22 11:00 Sodium Chloride 0.9% 10 Ml Flush Syringe IV 05/10/22 10:59 PRN NR Spironolactone 100 mg 05/05/22 12:00 05/07/22 09:41 Spironolactone 50 Mg Tab PO 100 mg QDAY LALO Administration
[2022-05-09] MEDS: HEPARIN 5,000 UNIT/1 ML VIAL SUB-Q SCH ×3 (06:16→22:43)
[2022-05-09] MEDS: SPIRONOLACTONE 50 MG TAB PO SCH (10:50)
[2022-05-09] MEDS: FUROSEMIDE 40 MG TAB PO SCH (10:50)
--- NOTE | 2022-05-09 11:12 | Progress Note ---
Assessment and Plan Assessment and plan: #Acute hypoxic respiratory failure-resolved -Baseline oxygen requirement: None -Oxygen requirement: None -Likely secondary to ascites causing low lung volumes -Chest x-ray shows low lung volumes with elevated right hemidiaphragm #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 #Ascites #thrombocytopenia -theraputic paracentesis completed yesterday -continue lasix and furosemide -thrombocytopenia due to liver disease, will continue to monitor #Urinary retention -brunner in place -acute, will trial of void prior to discharge -if still retaining will need to be discharged with brunner and outpatient Urology follow up #Same level fall -Skeletal survey was negative for acute fractures/dislocations -PT consultation ordered recommended HH with PT -DME ordered and awaiting delivery prior to discharge #History of breast cancer -Status postchemotherapy #Morbid obesity #Weight loss counseling #Exercise counseling - Counseled patient on the importance of weight loss, incorporating exercise, and dietary changes (lean meats, fresh fruits and vegetables, and water intake). Patient expresses understanding. - Time: +15 min #moderate protein calorie malnutrition -albumin 2.9 -secondary to cirrhosis #Advanced care planning -Disease education conducted, care plan discussed, diagnoses discussed, prognosis discussed, and patient acknowledges understanding with care plan -Time: +30 min #Debility -PT evaluation for safe discharge -Patient lives alone History Interval history: No acute events overnight. Patient has no complaints at this time. She's awaiting DME for discharge. Hospitalist Physical - Physical exam Narrative exam: GENERAL: Well-developed well-nourished. In no acute distress. HEENT: Normocephalic, atraumatic. No scleral icterus noted. Edentulous. NECK: Supple. CHEST/LUNGS: CTAB on RA. HEART/CARDIOVASCULAR: RRR. No murmur, rubs or gallops appreciated. ABDOMEN: +BS. Distended. NT to palpation. SKIN: BUE ecchymoses NEURO: No focal motor deficit. Follows all commands. MUSCULOSKELETAL: No joint effusion EXTREMITIES: No cyanosis, clubbing or peripheral edema. PSYCH: Cooperative. - Constitutional Vitals: Temp Pulse Resp BP Pulse Ox 97.5 F L 89 18 98/64 95 05/09/22 07:59 05/09/22 07:59 05/09/22 07:59 05/09/22 07:59 05/09/22 07:59 Results - Labs CBC & Chem 7: 05/06/22 03:51 05/06/22 03:51 Labs: Laboratory Last Values WBC 3.2 K/mm3 (4.5-11.0) L 05/06/22 03:51 RBC 4.13 M/mm3 (3.65-5.03) 05/06/22 03:51 Hgb 13.1 gm/dl (10.1-14.3) 05/06/22 03:51 Hct 38.1 % (30.3-42.9) 05/06/22 03:51 MCV 92 fl (79-97) 05/06/22 03:51 MCH 32 pg (28-32) 05/06/22 03:51 MCHC 34 % (30-34) 05/06/22 03:51 RDW 17.2 % (13.2-15.2) H 05/06/22 03:51 Plt Count 70 K/mm3 (140-440) L 05/06/22 03:51 Lymph % (Auto) 13.0 % (13.4-35.0) L 05/06/22 03:51 [place] % (Auto) 14.0 % (0.0-7.3) H 05/06/22 03:51 Eos % (Auto) 1.9 % (0.0-4.3) 05/06/22 03:51 Baso % (Auto) 0.8 % (0.0-1.8) 05/06/22 03:51 Lymph # (Auto) 0.4 K/mm3 (1.2-5.4) L 05/06/22 03:51 [place] # (Auto) 0.4 K/mm3 (0.0-0.8) 05/06/22 03:51 Eos # (Auto) 0.1 K/mm3 (0.0-0.4) 05/06/22 03:51 Baso # (Auto) 0.0 K/mm3 (0.0-0.1) 05/06/22 03:51 Seg Neutrophils % 70.3 % (40.0-70.0) H 05/06/22 03:51 Seg Neutrophils # 2.2 K/mm3 (1.8-7.7) 05/06/22 03:51 PT 19.3 Sec. (12.2-14.9) H 05/06/22 03:51 INR 1.44 (0.87-1.13) H 05/06/22 03:51 Sodium 144 mmol/L (137-145) 05/06/22 03:51 Potassium 3.4 mmol/L (3.6-5.0) L 05/06/22 03:51 Chloride 104.6 mmol/L (98-107) 05/06/22 03:51 Carbon Dioxide 29 mmol/L (22-30) 05/06/22 03:51 Anion Gap 14 mmol/L 05/06/22 03:51 BUN 13 mg/dL (7-17) 05/06/22 03:51 Creatinine 0.8 mg/dL (0.6-1.2) 05/06/22 03:51 Estimated GFR > 60 ml/min 05/06/22 03:51 BUN/Creatinine Ratio 16 % 05/06/22 03:51 Glucose 91 mg/dL (65-100) 05/06/22 03:51 Calcium 8.4 mg/dL (8.4-10.2) 05/06/22 03:51 Total Bilirubin 1.90 mg/dL (0.1-1.2) H 05/06/22 03:51 AST 18 units/L (5-40) 05/06/22 03:51 ALT 8 units/L (7-56) 05/06/22 03:51 Alkaline Phosphatase 55 units/L (35-129) 05/06/22 03:51 Total Protein 5.0 g/dL (6.3-8.2) L 05/06/22 03:51 Albumin 2.7 g/dL (3.9-5) L 05/06/22 03:51 Albumin/Globulin Ratio 1.2 % 05/06/22 03:51 [place]/IV: Voiding Method Indwelling Catheter Active Medications - Current Medications Current Medications: Generic Name Dose Route Start Last Admin Trade Name Freq PRN Reason Stop Dose Admin Acetaminophen 650 mg 05/05/22 11:00 Acetaminophen 325 Mg Tab PO Q4H PRN Pain MILD(1-3)/Fever >100.5/[place] Albumin Human 25 gm 05/05/22 11:40 05/06/22 14:16 Albumin Human 25% (25 Gm/100 Ml) Inj IV 25 gm Q8HR PRN Administration Hypotension Furosemide 40 mg 05/05/22 12:00 05/09/22 10:50 Furosemide 40 Mg Tab PO 40 mg QDAY LALO Administration Heparin Sodium (Porcine) 5,000 unit 05/05/22 22:00 05/09/22 06:16 Heparin 5,000 Unit/1 Ml Vial SUB-Q 5,000 unit Q8HR LALO Administration Morphine Sulfate 2 mg 05/05/22 09:58 Morphine 2 Mg/1 Ml Inj IV Q4H PRN Pain, Moderate (4-6) Morphine Sulfate 4 mg 05/05/22 11:00 Morphine 4 Mg/1 Ml Inj IV Q4H PRN Pain , Severe (7-10) Ondansetron HCl 4 mg 05/05/22 11:00 Ondansetron 4 Mg/2 Ml Inj IV Q8H PRN Nausea And Vomiting Oxycodone/Acetaminophen 1 tab 05/05/22 11:00 05/06/22 14:34 Oxycodone /Acetaminophen 5-325mg Tab PO 1 tab Q6H PRN Administration Pain, Moderate (4-6) Sodium Chloride 10 ml 05/05/22 22:00 05/09/22 10:50 Sodium Chloride 0.9% 10 Ml Flush Syringe IV 10 ml BID LALO Administration Sodium Chloride 10 ml 05/05/22 11:00 Sodium Chloride 0.9% 10 Ml Flush Syringe IV 05/10/22 10:59 PRN NR Spironolactone 100 mg 05/05/22 12:00 05/09/22 10:50 Spironolactone 50 Mg Tab PO 100 mg QDAY LALO Administration
[2022-05-10] MEDS: HEPARIN 5,000 UNIT/1 ML VIAL SUB-Q SCH (06:11)
--- NOTE | 2022-05-10 07:37 | Ultrasound Report ---
ULTRASOUND-GUIDED PARACENTESIS HISTORY: large scale ascites-theraputic. PROCEDURE: The risks (including but not limited to bleeding, infection, and bowel injury) and benefi ts were explained to the patient and informed consent was obtained. A time out procedure was perform ed. Ultrasound was used to evaluate the abdomen and locate the largest ascites fluid pocket. Once the sk in was marked, the procedure site was prepped and draped in the usual sterile fashion and lidocaine w as used for local anesthesia. A 5 [place] centesis catheter was placed. The patient was monitored cl osely throughout the procedure, and a total of 20.2 L of clear yellow fluid was aspirated. No labs w ere requested by the ordering physician. The patient tolerated the procedure well with no complications. IMPRESSION: Successful ultrasound-guided paracentesis as described. Signer Name: Steve Darling Jr, MD Signed: 05/10/2022 7:33 AM Workstation Name: [id number]
[2022-05-10] MEDS: SPIRONOLACTONE 50 MG TAB PO SCH (11:05)
[2022-05-10] MEDS: FUROSEMIDE 40 MG TAB PO SCH (11:05)
--- NOTE | 2022-05-10 12:39 | Discharge Summary ---
Providers - Providers Date of Admission: 05/05/22 09:58 Date of discharge: 05/10/22 Attending physician: EVELIA LEI 05/04/22 23:21 Consult to Case Management [CONS] Urgent Services Needed at Discharge: Media Traffic Manager Notified:: n Additional Physician Instructions: Patient lives at home alone and unable to ambulate. EMS states the patient lives in poor conditions and was not safe to leave further alone so they brought her back to the ED. Needs safe discharge 05/05/22 10:16 Physical Therapy Evaluation and Treat [CONS] Routine Comment: Reason For Exam: GAIT EVALUATION 05/06/22 16:18 Consult to Case Management [CONS] Routine Services Needed at Discharge: Home Health Services Physical Therapy Notified:: case management Additional Physician Instructions: HHPT-EVAL AND TREAT 05/10/22 09:49 Consult to Physician [CONS] Routine Comment: Consulting Provider: DODIE IVY Physician Instructions: Reason For Exam: Urinary Retention Primary care physician: DIRECTOR OF NATIONAL SALES Hospitalization Condition: Stable Hospital course: #Acute hypoxic respiratory failure-resolved -Baseline oxygen requirement: None -Oxygen requirement: None -Likely secondary to ascites causing low lung volumes -Chest x-ray shows low lung volumes with elevated right hemidiaphragm #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 #Ascites #thrombocytopenia -theraputic paracentesis completed yesterday -continue lasix and furosemide -thrombocytopenia due to liver disease, will continue to monitor #Urinary retention -brunner in place -acute, will trial of void prior to discharge -if still retaining will need to be discharged with brunner and outpatient Urology follow up #Same level fall -Skeletal survey was negative for acute fractures/dislocations -PT consultation ordered recommended HH with PT -DME ordered and awaiting delivery prior to discharge #History of breast cancer -Status postchemotherapy #Morbid obesity #Weight loss counseling #Exercise counseling - Counseled patient on the importance of weight loss, incorporating exercise, and dietary changes (lean meats, fresh fruits and vegetables, and water intake). Patient expresses understanding. - Time: +15 min #moderate protein calorie malnutrition -albumin 2.9 -secondary to cirrhosis #Advanced care planning -Disease education conducted, care plan discussed, diagnoses discussed, prognosis discussed, and patient acknowledges understanding with care plan -Time: +30 min #Debility -PT evaluation for safe discharge -Patient lives alone Acute hypoxic respiratory failure/ Disposition: HOME HEALTH CARE SERVICE Final Discharge Diagnosis (Prints w/discharge instructions): Acute hypoxic respiratory failure resolved. Cirrhosis secondary to ORDOÑEZ versus chemotherapy. Ascites. Thrombocytopenia. Urinary retention. History of recurrent falls fall precautions. History of breast cancer. Morbid obesity. Moderate protein calorie malnutrition Time spent for discharge: 35 minutes Core Measure Documentation - Palliative Care Palliative Care/ Comfort Measures: Not Applicable - Core Measures Any of the following diagnoses?: none Exam - Constitutional Vitals: Temp Pulse Resp BP Pulse Ox 98.1 F 91 H 17 112/60 98 05/10/22 08:29 05/10/22 08:29 05/10/22 08:29 05/10/22 08:05/10/22 08:29 General appearance: Present: no acute distress, obese - EENT Eyes: Present: PERRL, EOM intact - Neck Neck: Present: supple, normal ROM - Respiratory Respiratory effort: normal Respiratory: bilateral: diminished, negative: rales, rhonchi, wheezing - Cardiovascular Rhythm: regular - Extremities Extremities: no ischemia, No edema - Abdominal General gastrointestinal: Present: soft, non-tender, non-distended, normal bowel sounds - Integumentary Integumentary: Present: clear, warm - Musculoskeletal Musculoskeletal: generalized weakness - Psychiatric Psychiatric: appropriate mood/affect, cooperative - Neurologic Neurologic: moves all extremities Plan Activity: advance as tolerated, fall precautions Diet: other (Cardiac diet as tolerated) Additional Instructions: Advised to see private wire harness assembler in 1 to 2 weeks. If you have worsening symptoms contact MD or go to the nearest emergency room as needed. Strongly advised to comply with medications, diet, follow-up visits with your physicians. Advised diet modification, exercise as tolerated and weight reduction when you are medically stable and after discussing with your primary care physician. Patient was advised 4 days of work excuse from 05/11/2022 -05/14/2022. Check with primary care physician for additional days of work excuse as needed Care Plan Goals: Please follow-up with your wire harness assembler. You will need a primary care physician to help you with your basic medical needs. Please contact the office of Dr. Sanz to schedule an appointment to establish care. Please restart the lasix and spironolactone as you were prescribed. We have ordered home health with physical therapy visits for you as recommended by physical therapy. Follow up with: JHON SANZ MD [Staff Physician] - 7 Days Forms: Work/School Release Form Prescriptions: Spironolactone [Aldactone] 100 mg PO QDAY 30 Days #60 tablet Furosemide [Lasix TAB] 40 mg PO QDAY 30 Days #30 tablet
[2022-05-10 16:41] VITALS: BP 96/63
== END 2022-05-10 18:43 | disposition home health service (06) | DRG 189 ==
LOC: ED 22:57 → 4A 05-05 09:58
PROVIDERS: ADMIT Internal Medicine; ATTEND Internal Medicine
PROC: 0W9G3ZZ Drainage of Peritoneal Cavity, Percutaneous Approach (ICD-10-PCS; principal; 2022-05-05)
DX: J96.01 Acute respiratory failure with hypoxia (principal); R18.8 Other ascites; E44.0 Moderate protein-calorie malnutrition; E66.01 Morbid (severe) obesity due to excess calories; K74.60 Unspecified cirrhosis of liver; K75.81 Nonalcoholic steatohepatitis (NASH); Z68.38 Body mass index [BMI] 38.0-38.9, adult; Z88.0 Allergy status to penicillin; R53.81 Other malaise; W18.39XA Other fall on same level, initial encounter; Y93.89 Activity, other specified; Y92.89 Other specified places as the place of occurrence of the external cause; Y99.8 Other external cause status; Z71.3 Dietary counseling and surveillance; Z85.3 Personal history of malignant neoplasm of breast; D69.6 Thrombocytopenia, unspecified; R33.9 Retention of urine, unspecified
CPT/HCPCS: 36415; 49083; 71045; 72170; 80053; 82550; 83735; 85025; 85027; 85610; 85730; 99283; 99284; G0378; J1644; P9047